=== PATIENT | female | born 1975 | race American Indian/Alaskan Native ===

== ENCOUNTER 2021-12-18 12:40 | Emergency (ER) | payer SELFPAY ==
[2021-12-18] MEDS ORDERED: ONDANSETRON 4 MG/2 ML INJ IV ONE ×2 (12:52→21:50)
[2021-12-18] MEDS ORDERED: SODIUM CHLORIDE 0.9% 1000 ML 1,000 ML IV ONE ×2 (12:52→21:50)
[2021-12-18 13:39] LABS: Hematocrit 26.6 % (30.3-42.9); Mean Corpuscular HGB Conc 30 % (30-34); Platelet Count 823 K/mm3 (140-440); Red Blood Count 4.61 M/mm3 (3.65-5.03); Red Cell Distribution Width 19.6 % (13.2-15.2)
[2021-12-18 13:41] LABS: Mean Corpuscular Volume 58 fl (79-97)
[2021-12-18 14:39] LABS: Alanine Aminotransferase 7 units/L (7-56); Albumin 3.7 g/dL (3.9-5); Blood Urea Nitrogen 7 mg/dL (7-17); Hemolysis Index 7
[2021-12-18 14:45] LABS: BUN/Creatinine Ratio 10
[2021-12-18 14:46] LABS: Calcium > 13.0 mg/dL (8.4-10.2)
[2021-12-18] MEDS ORDERED: DICYCLOMINE 20 MG/2 ML INJ IM ONE (15:00)
[2021-12-18 21:40] LABS: Color,Urine Straw (Yellow)
[2021-12-18 21:42] LABS: Bacteria,Urine 1+ /HPF (Negative); Mucus,Urine FEW /HPF
[2021-12-18] MEDS ORDERED: cefTRIAXone/NS 1 GM/50 ML 1 GM/50 ML BAG IV ONE (21:49)
[2021-12-18 23:37] LABS: Amphetamine Screen,Urine PRESUMPTIVE NEGATIVE; Benzodiazepines Screen,Urine PRESUMPTIVE NEGATIVE; Cannabinoid Screen,Urine PRESUMPTIVE POSITIVE; Cocaine Screen,Urine PRESUMPTIVE NEGATIVE; Methadone Screen,Urine PRESUMPTIVE NEGATIVE; Opiate Screen,Urine PRESUMPTIVE NEGATIVE
--- NOTE | 2021-12-18 23:41 | Cat Scan Report ---
CT ABDOMEN AND PELVIS WITH CONTRAST INDICATION: Vomiting, nausea, duration 3 days CONTRAST: 100 cc Omnipaque 350 IV COMPARISON: None available. All CT scans at this location are performed using CT dose reduction for ALARA by means of automated e xposure control. FINDINGS: Lung bases clear. No pneumoperitoneum. No significant abdominal wall herniation. Gallbladde r and bile ducts normal. No urinary obstruction. No abdominal masses. No obvious lymphadenopathy. No bowel obstruction. Appendix is partly seen without obvious abnormality. Uterus and urinary bladder show no abnormalities. In the lower left pelvis posterior to the uterus an d urinary bladder a complex masslike area is seen with mixed density measuring 5.9 cm. I do not see a normal ovary. No gas is seen within this area and there probably is enhancement. I do not favor this being just a matted collection of bowel loops the lead is possible. I am concerned this could repres ent a complex adnexal mass/collection. Lack of internal body fat makes evaluation more difficult monte kaylen. IMPRESSION: Complex appearing left adnexal masslike area as above. Recommend ultrasound. Signer Name: Flaquito Farr MD Signed: 12/18/2021 11:37 PM Workstation Name: [id number]
--- NOTE | 2021-12-19 02:17 | Ultrasound Report ---
PELVIC ULTRASOUND INDICATION: pain COMPARISON: CT abdomen and pelvis tonight TECHNIQUE: Transabdominal FINDINGS: Uterus: Measures 10 x 4.1 x 7.5 cm. Endometrial stripe measures 8 mm. A large solid mass is seen in t he cervical region corresponding to the lesion seen on CT. This is noted more to the left of midline. Internal blood flow is noted. There appears to be a small cystic component posteriorly measuring 17 mm. Mass measures 6.8 cm in greatest diameter and has a mildly heterogenous echo pattern. The mass is not clearly delineated from the lower uterine segment. Right ovary: Measures 3.2 cm in length and shows no abnormalities. Blood flow is noted. Left ovary: Measures 2.7 cm in length and shows no abnormalities. Blood flow is noted. No obvious rel ation to the left-sided mass is seen. Free fluid: None IMPRESSION: The large mass seen in the lower left pelvis on CT appears to likely be arising from the cervix and therefore would be of significant concern for cervical carcinoma. Separate normal appearin g ovaries are seen bilaterally. Clinical correlation is needed. Signer Name: Flaquito Farr MD Signed: 12/19/2021 2:13 AM Workstation Name: [id number]
--- NOTE | 2021-12-19 03:12 | Emergency Department Report ---
ED General Adult HPI - General Chief complaint: Nausea/Vomiting/Diarrhea Stated complaint: VOMITTING,STOMACH PAIN,CHEST PAIN Time Seen by Provider: 12/18/21 21:45 Source: patient Mode of arrival: Ambulatory Limitations: No Limitations - History of Present Illness Initial comments: PATIENT REPORTS EATING FISH AT [facility], PT C/O N/V/D X 3 DAYS -: Gradual, days(s) Location: abdomen Radiation: non-radiation Severity scale (0 -10): 10 Worsens with: none Associated Symptoms: nausea/vomiting. denies: denies other symptoms, confusion Treatments Prior to Arrival: none - Related Data Allergies Allergy/AdvReac Type Severity Reaction Status Date / Time No Known Allergies Allergy Unverified 12/18/21 14:13 ED Review of Systems ROS: Stated complaint: VOMITTING,STOMACH PAIN,CHEST PAIN Other details as noted in HPI Constitutional: denies: chills, fever Eyes: denies: eye pain, eye discharge, vision change ENT: denies: ear pain, throat pain Respiratory: denies: cough, shortness of breath, wheezing Cardiovascular: denies: chest pain, palpitations Endocrine: no symptoms reported Gastrointestinal: denies: abdominal pain, nausea, diarrhea Genitourinary: denies: urgency, dysuria, discharge Musculoskeletal: denies: back pain, joint swelling, arthralgia Skin: denies: rash, lesions Neurological: denies: headache, weakness, paresthesias Psychiatric: denies: anxiety, depression Hematological/Lymphatic: denies: easy bleeding, easy bruising ED Past Medical Hx - Past Medical History Previous Medical History?: No Hx Hypertension: No Hx CVA: No - Surgical History Past Surgical History?: No ED Physical Exam - General Limitations: No Limitations General appearance: alert, other (thin) - Head Head exam: Present: atraumatic, normocephalic - Eye Eye exam: Present: normal appearance - ENT ENT exam: Present: mucous membranes moist - Neck Neck exam: Present: normal inspection - Respiratory Respiratory exam: Present: normal lung sounds bilaterally. Absent: respiratory distress - Cardiovascular Cardiovascular Exam: Present: regular rate, normal rhythm. Absent: systolic murmur, diastolic murmur, rubs, gallop - GI/Abdominal GI/Abdominal exam: Present: soft, normal bowel sounds - Speculum exam: Present: vaginal discharge, cervical discharge, tissue, other (fungating mass ) - Extremities Exam Extremities exam: Present: normal inspection - Back Exam Back exam: Present: normal inspection - Neurological Exam Neurological exam: Present: alert, oriented X3 - Psychiatric Psychiatric exam: Present: normal affect, normal mood - Skin Skin exam: Present: warm, dry, intact, normal color. Absent: rash ED Course Vital Signs 12/18/21 12:56 Temperature 98.3 F Pulse Rate 131 H Respiratory 16 Rate Blood Pressure 109/76 [Right] O2 Sat by Pulse 99 Oximetry ED Medical Decision Making - Lab Data Result diagrams: 12/18/21 13:18 12/18/21 13:18 - Radiology Data Radiology results: report reviewed, image reviewed - Medical Decision Making work up showed : -Hypercalcemia : fludis given - nause and vomiting : Fluids and zofran imrpoved uti: Ab xigven - cervical mass, looks cancerous , spoke with dr cruz, will refer to onc and patient service technician pst Critical care attestation.: If time is entered above; I have spent that time in minutes in the direct care of this critically ill patient, excluding procedure time. ED Disposition Clinical Impression: Cervical mass, Nausea and vomiting Disposition: 01 HOME / SELF CARE / HOMELESS Is pt being admited?: No Does the pt Need Aspirin: No Condition: Stable Instructions: Nausea, Adult Referrals: PRIMARY CARE, [Primary Care Provider] - 3-5 Days MARA BAIRES MD [Staff Physician] - 3-5 Days LEONEL FRANCOIS MD [Staff Physician] - 3-5 Days
[2021-12-19 04:13] VITALS: BP 110/74
== END 2021-12-19 04:14 | disposition home or self-care (01) ==
LOC: ED 12:40
DX: R22.1 Localized swelling, mass and lump, neck (principal); R11.2 Nausea with vomiting, unspecified; Z79.899 Other long term (current) drug therapy
CPT/HCPCS: 36415; 74177; 76856; 80053; 80307; 81001; 83690; 83735; 84100; 84703; 85027; 87086; 96361; 96365; 96375; 96376; 99284; J0696; J2405; J7030; Q9967